=== PATIENT | male | born 1950 | race Caucasian/White ===

== ENCOUNTER 2018-11-01 03:53 | Emergency (ER) | payer MEDICARE ==
--- NOTE | 2018-11-01 03:53 | ER Report ---
History and Physical Time Seen By MD: 03:52 HPI/ROS CHIEF COMPLAINT: Cough, shortness of breath, right-sided chest pain HISTORY OF PRESENT ILLNESS: Patient is a 68-year-old male here with complaints of cough, shortness breath, right-sided chest pain for the past several days acutely worsening today. Patient has a history of COPD and admits to stopping smoking approximately 60 days ago. Patient did run out of his oxygen supplemental tank approximately 5 days ago and is supposed be on 2 L nasal cannula [id number]. Patient reports fevers, chills, myalgias, arthralgias. REVIEW OF SYSTEMS: Constitutional: + fever, + chills. Eyes: No discharge. ENT: No sore throat. Cardiovascular: No chest pain, no palpitations. Respiratory: + cough, + shortness of breath. Gastrointestinal: No abdominal pain, no vomiting. Genitourinary: No hematuria. Musculoskeletal: No back pain.+ Myalgias, arthralgias Skin: No rashes. Neurological: No headache. Allergies: Coded Allergies: Penicillins (Verified Allergy, Unknown, "HIVES", 11/01/18) Home Meds Active Scripts Prednisone (PREDNISONE) 50 Mg Tablet, 50 MG PO QDAY for 5 Days, #5 TAB Prov:ELMER BERNAL DO 11/01/18 Levofloxacin 750 Mg Tab (LEVAQUIN 750 MG TAB) 750 Mg Tablet, 750 MG PO QDAY for 4 Days, #4 TAB Prov:ELMER BERNAL DO 11/01/18 Reported Medications Albuterol Sulfate 0.083% (ALBUTEROL SULFATE 0.083%) 2.5 Mg/3 Ml Vial.neb, 2.5 MG INH, INH 11/01/18 Ipratropium/Albuterol Sulfate (COMBIVENT RESPIMAT INHAL SPRAY) 4 Gm Aer.w.adap, 1 EACH IH QID 11/01/18 Budesonide/Formoterol Fumarate (SYMBICORT 160-4.5 MCG INHALER) 10.2 Gm Inh, 10.2 GM INH, INH 11/01/18 Constitutional Vital Sign - Last 24 Hours 11/01/18 11/01/18 11/01/18 11/01/18 03:56 03:58 04:00 04:03 Temp 99.6 Pulse 100 101 Resp 18 25 B/P (MAP) 114/79 114/80 (91) 114/79 (91) Pulse Ox 93 95 O2 Delivery Nasal Cannula 11/01/18 11/01/18 11/01/18 11/01/18 04:08 04:10 04:10 04:13 Pulse 101 90 97 Resp 32 26 30 Pulse Ox 96 93 100 O2 Delivery Nasal Cannula O2 Flow Rate 4.0 11/01/18 11/01/18 11/01/18 11/01/18 04:15 04:18 04:20 04:28 Pulse 98 ??? Resp 26 Pulse Ox 95 O2 Flow Rate 3.0 11/01/18 11/01/18 11/01/18 11/01/18 04:31 04:33 04:38 04:43 Pulse 99 91 98 Resp 35 31 23 B/P (MAP) 120/76 (91) Pulse Ox 90 92 94 11/01/18 11/01/18 11/01/18 11/01/18 04:48 04:53 04:58 05:00 Pulse 92 93 92 Resp 29 34 31 B/P (MAP) 98/69 (79) Pulse Ox 98 11/01/18 11/01/18 11/01/18 11/01/18 05:03 05:08 05:13 05:18 Pulse 94 95 92 92 Resp 38 33 33 37 Pulse Ox 94 85 93 93 11/01/18 11/01/18 11/01/18 11/01/18 05:23 05:28 05:30 05:33 Pulse 93 93 92 Resp 38 35 34 B/P (MAP) 103/71 (82) Pulse Ox 94 93 93 11/01/18 11/01/18 11/01/18 11/01/18 05:38 05:43 05:48 05:53 Pulse 91 90 89 89 Resp 34 35 33 36 Pulse Ox 93 92 93 94 11/01/18 11/01/18 11/01/18 11/01/18 05:58 06:00 06:03 06:08 Pulse 89 89 90 Resp 32 36 34 B/P (MAP) 104/72 (83) Pulse Ox 94 94 92 Physical Exam General Appearance: The patient is alert, has no immediate need for airway protection and no signs of toxicity. Moderate distress secondary to shortness breath Eyes: Pupils equal and round no pallor or injection. ENT, Mouth: Mucous membranes are moist. Respiratory: There are no retractions, + lungs are diminished with scant wheezing Cardiovascular: Regular rate and rhythm. Gastrointestinal: Abdomen is soft and non tender, no masses, bowel sounds normal. Neurological: No focal neurological findings Skin: Warm and dry, no rashes. Musculoskeletal: Neck is supple non tender. Extremities are nontender, nonswollen and have full range of motion. DIFFERENTIAL DIAGNOSIS: After history and physical exam differential diagnosis was considered for shortness of breath including but not limited to pulmonary infectious process, COPD, asthma, pulmonary embolus and congestive heart failure. Medical Decision Making Data Points Result Diagram: 11/01/18 0345 11/01/18 0345 Laboratory Hematology Test 11/01/18 03:45 11/01/18 04:00 11/01/18 04:40 Red Blood Count 4.38 M/uL (4.00-5.60) Mean Corpuscular Volume 99.3 fL (80.0-96.0) Mean Corpuscular Hemoglobin 33.6 pg (26.0-33.0) Mean Corpuscular Hemoglobin Concent 33.9 g/dL (32.0-36.0) Red Cell Distribution Width 13.0 % (11.5-14.5) Mean Platelet Volume 8.4 fL (7.2-11.1) Neutrophils (%) (Auto) 84.8 % (39.4-72.5) Lymphocytes (%) (Auto) 7.0 % (17.6-49.6) Monocytes (%) (Auto) 7.7 % (4.1-12.4) Eosinophils (%) (Auto) 0.2 % (0.4-6.7) Basophils (%) (Auto) 0.3 % (0.3-1.4) Nucleated RBC Relative Count (auto) 0.0 /100WBC Neutrophils # (Auto) 7.8 K/uL (2.0-7.4) Lymphocytes # (Auto) 0.6 K/uL (1.3-3.6) Monocytes # (Auto) 0.7 K/uL (0.3-1.0) Eosinophils # (Auto) 0.0 K/uL (0.0-0.5) Basophils # (Auto) 0.0 K/uL (0.0-0.1) Nucleated RBC Absolute Count (auto) 0.00 K/uL Sodium Level 136 mmol/L (137-145) Potassium Level 3.7 mmol/L (3.5-5.0) Chloride Level 101 mmol/L (98-107) Carbon Dioxide Level 24 mmol/L (22-30) Blood Urea Nitrogen 11 mg/dl (9-21) Creatinine 0.70 mg/dl (0.66-1.25) Glomerular Filtration Rate Calc > 60.0 Random Glucose 120 mg/dl (75-110) Calcium Level 8.7 mg/dl (8.4-10.2) Total Bilirubin 1.5 mg/dl (0.2-1.3) Aspartate Amino Transf (AST/SGOT) 35 U/L (0-35) Alanine Aminotransferase (ALT/SGPT) 40 U/L (0-56) Alkaline Phosphatase 62 U/L (0-126) Troponin I < 0.012 ng/ml B-Type Natriuretic Peptide 36 pg/ml (0-100) Total Protein 7.1 g/dl (6.3-8.2) Albumin 4.1 g/dl (3.5-5.0) Influenza Virus Type A (PCR) Negative (NEGATIVE) Influenza Virus Type B (PCR) Negative (NEGATIVE) Blood Gas Patient Temperature 99.6 DEGREES Venous Blood pH 7.35 (7.31-7.41) Venous Blood Partial Pressure CO2 40 mmHg Venous Blood Partial Pressure O2 < 35 mmHg Venous Blood HCO3 22 mmol/L Venous Blood Oxygen Saturation 30 % Venous Blood Base Excess -4 mmol/L Oxygen Liters/Minute 93 on 3l Chemistry Test 11/01/18 03:45 11/01/18 04:00 11/01/18 04:40 White Blood Count 9.2 k/uL (4.5-11.0) Red Blood Count 4.38 M/uL (4.00-5.60) Hemoglobin 14.7 g/dL (14.0-18.0) Hematocrit 43.5 % (42.0-52.0) Mean Corpuscular Volume 99.3 fL (80.0-96.0) Mean Corpuscular Hemoglobin 33.6 pg (26.0-33.0) Mean Corpuscular Hemoglobin Concent 33.9 g/dL (32.0-36.0) Red Cell Distribution Width 13.0 % (11.5-14.5) Platelet Count 164 K/uL (150-450) Mean Platelet Volume 8.4 fL (7.2-11.1) Neutrophils (%) (Auto) 84.8 % (39.4-72.5) Lymphocytes (%) (Auto) 7.0 % (17.6-49.6) Monocytes (%) (Auto) 7.7 % (4.1-12.4) Eosinophils (%) (Auto) 0.2 % (0.4-6.7) Basophils (%) (Auto) 0.3 % (0.3-1.4) Nucleated RBC Relative Count (auto) 0.0 /100WBC Neutrophils # (Auto) 7.8 K/uL (2.0-7.4) Lymphocytes # (Auto) 0.6 K/uL (1.3-3.6) Monocytes # (Auto) 0.7 K/uL (0.3-1.0) Eosinophils # (Auto) 0.0 K/uL (0.0-0.5) Basophils # (Auto) 0.0 K/uL (0.0-0.1) Nucleated RBC Absolute Count (auto) 0.00 K/uL Glomerular Filtration Rate Calc > 60.0 Calcium Level 8.7 mg/dl (8.4-10.2) Total Bilirubin 1.5 mg/dl (0.2-1.3) Aspartate Amino Transf (AST/SGOT) 35 U/L (0-35) Alanine Aminotransferase (ALT/SGPT) 40 U/L (0-56) Alkaline Phosphatase 62 U/L (0-126) Troponin I < 0.012 ng/ml B-Type Natriuretic Peptide 36 pg/ml (0-100) Total Protein 7.1 g/dl (6.3-8.2) Albumin 4.1 g/dl (3.5-5.0) Influenza Virus Type A (PCR) Negative (NEGATIVE) Influenza Virus Type B (PCR) Negative (NEGATIVE) Blood Gas Patient Temperature 99.6 DEGREES Venous Blood pH 7.35 (7.31-7.41) Venous Blood Partial Pressure CO2 40 mmHg Venous Blood Partial Pressure O2 < 35 mmHg Venous Blood HCO3 22 mmol/L Venous Blood Oxygen Saturation 30 % Venous Blood Base Excess -4 mmol/L Oxygen Liters/Minute 93 on 3l EKG/Imaging EKG Interpretation 12 lead EKG: Normal sinus rhythm, ventricular rate 94, QTC 472, no ischemic changes. Rhythm: normal sinus rhythm [place]: normal QRS: normal ST segments: normal Monitor Interpretation: Normal Sinus Rhythm Imaging PATIENT NAME: Calderon Kim : 1950 MR: [id number] V: [id number] EXAM DATE: ORDERING PHYSICIAN: ELMER BERNAL TECHNOLOGIST: [facility] Patient: Calderon Kim : 1950 Visit/Account:[id number] Date of Sevice: 11/01/2018 CHEST: Indication: Respiratory distress. Technique: Frontal and lateral views were obtained. Comparison: None. Skeletal and soft tissue structures: There are mild degenerative changes in the spine. No acute skeletal deformity is identified. Heart and mediastinum: Within normal limits. Lung higgins: There is ill-defined parenchymal opacity in the right lower lobe, compatible with acute pneumonia. No other focal parenchymal opacities are identified. Pleural spaces: No evidence of effusion or pneumothorax. Impression: Ill-defined opacity in the right lower lobe, compatible with acute pneumonia. ED Course/Re-evaluation ED Course Patient is a 68-year-old male here with complaints of cough, shortness breath in the setting of COPD. Patient reportedly has not been using his supplemental oxygen for the past several days. He reports acute worsening of symptoms over the past 24 hours with concomitant right-sided chest pain prompting evaluation. Patient had marked improvement after being placed on supplemental oxygen. His chest x-ray was concerning for right lower lobe infiltrate so patient was started on Levaquin. Labs are unremarkable, VBG showed no significant h ypercapnia. Troponin was negative. EKG showed no ischemic changes. Patient was given nebulizer treatments, magnesium, methylprednisolone. Return precautions provided. Close PCP follow-up recommended. Patient was arranged to have supplemental oxygen to take home as he ran out of his other supplemental oxygen tank. Decision to Disposition Date: Nov 01, 2018 Decision to Disposition Time: 06:08 Depart Departure Latest Vital Signs Vital Signs Date Time Temp Pulse Resp B/P (MAP) Pulse Ox O2 Delivery O2 Flow Rate FiO2 11/01/18 06:08 90 34 92 11/01/18 06:00 104/72 (83) 11/01/18 04:20 3.0 11/01/18 04:10 Nasal Cannula 11/01/18 03:56 99.6 Impression: Primary Impression: Pneumonia Condition: Improved Disposition: HOME OR SELF-CARE New Scripts Prednisone (PREDNISONE) 50 Mg Tablet 50 MG PO QDAY for 5 Days, #5 TAB Prov: ELMER BERNAL DO 11/01/18 Levofloxacin 750 Mg Tab (LEVAQUIN 750 MG TAB) 750 Mg Tablet 750 MG PO QDAY for 4 Days, #4 TAB Prov: ELMER BERNAL DO 11/01/18 Departure Forms: ER Transition Record, Home Oxygen, Nebulizer RX, Home Oxygen Company Chosen by Patient: [employer] Medical Equipment-Oxygen: Portable Oxygen Gas Reason for Use/Diagnosis: Requires baseline 2 L nasal cannula supplemental oxygen for COPD. Medications Reconciliation, Patient Portal Information Patient Instructions: Bacterial Pneumonia (DC) Additional Instructions: Please drink plenty of water. You were diagnosed with pneumonia. Please take Levaquin 1 tablet daily for the next 4 days. Please take prednisone 1 tablet daily for the next 5 days. Please follow-up with your family doctor in the next 3-5 days. Please return immediately if you develop increased shortness breath, fevers, chest pains. ELMER BERNAL DO Nov 01, 2018 03:53
[2018-11-01] MEDS ORDERED: NS(*) 0.9% 1000 ML BAG 1,000 ML IV ONE (04:00)
[2018-11-01] MEDS ORDERED: methylPREDNIS SUCC 125 MG/2ML IVP ONE (04:05)
[2018-11-01] MEDS ORDERED: MAGNESIUM SUL* 2 GM/50 ML IVPB 50 ML IVPB ONE (04:05)
[2018-11-01] MEDS ORDERED: ALBUTEROL/IPRATROPIUM 3 ML NEB NEB SCH (04:05)
[2018-11-01] MEDS ORDERED: IPRA4AER IH (04:08)
[2018-11-01] MEDS ORDERED: BUDE10.2 INH (04:08)
[2018-11-01] MEDS ORDERED: ALBU2.5V36 INH (04:08)
[2018-11-01 04:12] LABS: PLATELET COUNT, AUTOMATED 164 K/uL (150-450)
--- NOTE | 2018-11-01 04:47 | RADIOLOGY IMAGING REPORT ---
FACILITY: [facility] PATIENT NAME: Calderon Kim : 1950 MR: [id number] V: [id number] EXAM DATE: ORDERING PHYSICIAN: ELMER BERNAL TECHNOLOGIST: Location: [facility] [place] Patient: Calderon Kim : 1950 Visit/Account:[id number] Date of Sevice: 11/01/2018 CHEST: Indication: Respiratory distress. Technique: Frontal and lateral views were obtained. Comparison: None. Skeletal and soft tissue structures: There are mild degenerative changes in the spine. No acute skele shayy deformity is identified. Heart and mediastinum: Within normal limits. Lung higgins: There is ill-defined parenchymal opacity in the right lower lobe, compatible with acute pneumonia. No other focal parenchymal opacities are identified. Pleural spaces: No evidence of effusion or pneumothorax. Impression: Ill-defined opacity in the right lower lobe, compatible with acute pneumonia. Report Dictated By: Alcon Do MD at 11/01/2018 4:41 AM Report E-Signed By: Alcon Do MD at 11/01/2018 4:43 AM WSN:[id number]
[2018-11-01] MEDS ORDERED: LEVOFLOXACIN 750 MG TAB PO ONE (04:50)
--- NOTE | 2018-11-01 04:55 | EKG ---
FACILITY: [facility] [place] PATIENT NAME: BETSY MIRELES : [id number] MR: [id number] V: [id number] EXAM DATE: ORDERING PHYSICIAN: ELMER BERNAL TECHNOLOGIST: ELIF Test Reason : SOB Blood Pressure : / mmHG Vent. Rate : 094 BPM Atrial Rate : 094 BPM P-R Int : 150 ms QRS Dur : 082 ms QT Int : 378 ms P-R-T Axes : 084 074 073 degrees QTc Int : 472 ms Sinus rhythm Decreased R wave progression anteriorly Artifact in V2-4 Nonspecific interventricular conduction delay No previous ECGs available Confirmed by MIESHA ANDRADE ([id number]) on 11/01/2018 6:03:02 AM Referred By: Confirmed By:MIESHA ANDRADE
[2018-11-01] MEDS ORDERED: LEVO750T44 PO (05:03)
[2018-11-01] MEDS ORDERED: PRED50TA22 PO (06:10)
[2018-11-01 07:00] VITALS: BP 112/80
== END 2018-11-01 09:25 | disposition home or self-care (01) ==
LOC: ER 03:58
DX: J44.0 Chronic obstructive pulmonary disease with (acute) lower respiratory infection (principal); J18.9 Pneumonia, unspecified organism; Z87.891 Personal history of nicotine dependence; Z99.81 Dependence on supplemental oxygen
CPT/HCPCS: 36415; 71046; 82803; 83880; 84484; 85025; 87502; 93005; 94640; 96365; 96375; 99284; A9270; J2930; J3475; J7030; J7620; 82040; 82247; 82310; 82374; 82435; 82565; 82947; 84075; 84132; 84155; 84295; 84450; 84460; 84520